=== PATIENT | female | born 1965 | race Caucasian/White ===

== ENCOUNTER → 2017-01-15 | Outpatient (CLI) | payer BC ==
[~2017-01-15] MED LIST: AMIT PO; CIPR-217 PO; lisinopril PO
[2017-01-15 10:25] LABS: Basophils # (auto) 0 uL; Basophils % (auto) 0.6 % (0.0-2.0); CONDITION Y; Eosinophils # (auto) 0.2 uL; Hematocrit 42.3 % (36.0-46.0); Hemoglobin 14.7 g/dL (12.2-16.2); Lymphocytes # (auto) 1.9 uL; Lymphocytes % (auto) 34.2 % (10.0-50.0); Mean Corpuscular Hemoglobin 32.4 pg (28.0-32.0); Mean Corpuscular Hgb Conc. 34.8 g/dL (32.0-36.0); Mean Corpuscular Volume 93.2 fL (80.0-100.0); Mean Platelet Volume 8.4 fL (7.4-10.4); Monocytes # (auto) 0.4 uL; Monocytes % (auto) 8.1 % (0.0-12.0); Neutrophils # (auto) 2.9 uL; Neutrophils % (auto) 53.1 % (37.0-80.0); Platelet Count (auto) 285 10^3/uL (140-450); White Blood Cell 5.5 10^3/uL (4.4-10.8)
[2017-01-15 11:12] LABS: BUN/Creatinine Ratio 28.8; Bilirubin, Total 0.6 mg/dL (0.2-1.0); Calcium 9.2 mg/dL (8.5-10.1); Potassium 3.5 mmol/L (3.5-5.1); Total Protein 7.5 g/dL (6.4-8.2)
== END | disposition home or self-care (01) ==
LOC: LAB 08:55
PROVIDERS: ATTEND Internal Medicine
DX: I10 Essential (primary) hypertension (principal); N20.0 Calculus of kidney
CPT/HCPCS: 80053; 80061; 84439; 84443; 85652

== ENCOUNTER 2018-03-03 15:25 | Inpatient (IN) | payer BC ==
[~2018-03-03] VITALS: Ht 180.3 cm; Wt 91.6 kg
[2018-03-03] MEDS ORDERED: SODIUM CHLORIDE 0.9% 1,000 ML IVB ONE (15:47)
[2018-03-03] MEDS ORDERED: ONDANSETRON HCL 4 MG/2 ML VIAL IV ONE ×2 (16:00→18:15)
[2018-03-03] MEDS ORDERED: KETOROLAC TROMETH 30 MG/ML 1ML VIAL IV ONE ×2 (16:00→23:00)
[2018-03-03 16:54] LABS: Basophils # (auto) 0.1 uL; Basophils % (auto) 0.9 % (0.0-2.0); Eosinophils # (auto) 0.2 uL; Eosinophils % (auto) 2.4 % (0.0-7.0); Hematocrit 43.7 % (36.0-46.0); Lymphocytes # (auto) 1.9 uL; Lymphocytes % (auto) 28.8 % (10.0-50.0); Mean Corpuscular Hemoglobin 32.6 pg (28.0-32.0); Mean Corpuscular Hgb Conc. 34.4 g/dL (32.0-36.0); Mean Corpuscular Volume 94.8 fL (80.0-100.0); Monocytes # (auto) 0.5 uL; Monocytes % (auto) 7.2 % (0.0-12.0); Neutrophils # (auto) 4.1 uL; Neutrophils % (auto) 60.7 % (37.0-80.0); Nucleated Red Blood Cells % 0.1 %; Platelet Count (auto) 287 10^3/uL (140-450); Red Blood Cells 4.61 10^6/uL (4.0-5.20); Red Cell Distribution Width 13.1 % (11.8-14.3); White Blood Cell 6.7 10^3/uL (4.4-10.8)
[2018-03-03 17:07] LABS: Albumin 4.1 g/dL (3.4-5.0); BUN/Creatinine Ratio 34.7; Calcium 9.1 mg/dL (8.5-10.1); Potassium 3.5 mmol/L (3.5-5.1)
[2018-03-03 17:10] LABS: Bilirubin, Total 0.5 mg/dL (0.2-1.0); Total Protein 7.5 g/dL (6.4-8.2)
[2018-03-03 18:11] LABS: Urine Bacteria NONE SEEN /hpf (None Seen); Urine Blood Negative /uL (Negative); Urine Mucus FEW (None Seen); Urine Specific Gravity 1.026 (1.001-1.035); Urine WBC 2 /hpf (0 - 5)
[2018-03-03] MEDS ORDERED: MORPHINE SULFATE 4 MG/ML SYR/VIAL IV ONE (18:15)
[2018-03-03] MEDS ORDERED: ONDANSETRON HCL 4 MG/2 ML VIAL IV PRN (18:30)
[2018-03-03] MEDS ORDERED: cefTRIAXone 1GM/10ml IVPUSH 10 ML IV ONE (18:30)
[2018-03-03] MEDS ORDERED: DOCUSATE SOD 100 MG CAP PO PRN (18:30)
[2018-03-03] MEDS ORDERED: TEMAZEPAM 15 MG CAP PO PRN (18:30)
[2018-03-03] MEDS ORDERED: MORPHINE SULF INJ 2 MG/ML SYRINGE 1ML IV PRN (18:30)
[2018-03-03] MEDS ORDERED: ACETAMINOPHEN 325 MG TAB PO PRN (18:30)
[2018-03-03] MEDS: SODIUM CHLORIDE 0.9% 1,000 ML IV SCH (18:45)
[2018-03-03] MEDS ORDERED: cloNIDine HCL 0.1 MG TAB PO PRN (20:00)
[2018-03-03 20:45] VITALS: BP 150/99
[2018-03-03] MEDS: FAMOTIDINE 20 MG TAB PO SCH (21:41)
[2018-03-03 22:00] VITALS: BP 150/99
[2018-03-03] MEDS ORDERED: HYDROcodone-ACET 7.5/325MG TAB PO ONE (23:00)
[2018-03-04] MEDS ORDERED: HCTZ25T PO (03:40)
[2018-03-04] MEDS: SODIUM CHLORIDE 0.9% 1,000 ML IV SCH ×2 (04:58→11:13)
[2018-03-04] MEDS: HYDROcodone-ACET 5/325MG TAB PO PRN ×2 (04:58→10:34)
[2018-03-04 05:40] VITALS: BP 134/90
[2018-03-04 05:58] LABS: Basophils # (auto) 0 uL; Basophils % (auto) 0.8 % (0.0-2.0); Eosinophils # (auto) 0.2 uL; Eosinophils % (auto) 3.1 % (0.0-7.0); Hematocrit 37.8 % (36.0-46.0); Hemoglobin 13.3 g/dL (12.2-16.2); Lymphocytes # (auto) 1.7 uL; Lymphocytes % (auto) 30.7 % (10.0-50.0); Mean Corpuscular Hemoglobin 33.3 pg (28.0-32.0); Mean Corpuscular Hgb Conc. 35.1 g/dL (32.0-36.0); Mean Corpuscular Volume 94.7 fL (80.0-100.0); Monocytes # (auto) 0.4 uL; Monocytes % (auto) 7.9 % (0.0-12.0); Neutrophils # (auto) 3.2 uL; Neutrophils % (auto) 57.5 % (37.0-80.0); Nucleated Red Blood Cells % 0.1 %; Platelet Count (auto) 226 10^3/uL (140-450); Red Blood Cells 3.99 10^6/uL (4.0-5.20); Red Cell Distribution Width 12.9 % (11.8-14.3); White Blood Cell 5.6 10^3/uL (4.4-10.8)
[2018-03-04 06:15] LABS: Albumin 3.3 g/dL (3.4-5.0); BUN/Creatinine Ratio 30.3; Bilirubin, Total 0.5 mg/dL (0.2-1.0); Potassium 3.3 mmol/L (3.5-5.1); Total Protein 6.1 g/dL (6.4-8.2)
[2018-03-04 06:20] LABS: INR 0.95 (0.9-1.15); Prothrombin Time 10.2 sec (9.27-12.13)
[2018-03-04] MEDS ORDERED: KETOROLAC TROMETH 30 MG/ML 1ML VIAL IV PRN (07:00)
[2018-03-04 09:00] VITALS: BP 141/97
[2018-03-04] MEDS ORDERED: cefTRIAXone 1GM/10ml IVPUSH 10 ML IV SCH (09:00)
[2018-03-04] MEDS ORDERED: LISINOPRIL 20 MG TAB PO SCH (10:00)
[2018-03-04] MEDS ORDERED: HCTZ 25 MG TAB PO SCH (10:00)
[2018-03-04] MEDS ORDERED: MULTIPLE VITAMIN TAB PO SCH (10:00)
[2018-03-04] MEDS: FAMOTIDINE 20 MG TAB PO SCH (10:26)
[2018-03-04] MEDS ORDERED: POTASSIUM CHL 20 Meq TABLET PO ONE (10:45)
[2018-03-04 11:59] VITALS: BP 141/97
== END 2018-03-04 13:35 | disposition home or self-care (01) | DRG 694 ==
LOC: ER 15:25 → EEVIPCON 15:26 → OVERFLOW 15:26 → CENTRAL 20:43
PROVIDERS: ADMIT Internal Medicine; ATTEND Internal Medicine
DX: N20.0 Calculus of kidney (principal); I10 Essential (primary) hypertension; Z96.89 Presence of other specified functional implants; Z82.49 Family history of ischemic heart disease and other diseases of the circulatory system; Z90.710 Acquired absence of both cervix and uterus; Z98.82 Breast implant status; Z88.1 Allergy status to other antibiotic agents; Z88.8 Allergy status to other drugs, medicaments and biological substances; Z79.899 Other long term (current) drug therapy; Z80.8 Family history of malignant neoplasm of other organs or systems
CPT/HCPCS: 36415; 74176; 80053; 81001; 85025; 85610; 87086; 96361; 96374; 96375; J0696; J1885; J2405

== ENCOUNTER 2018-03-10 06:04 | Day surgery (SDC) | payer BC ==
[2018-03-06 10:28] LABS: Basophils # (auto) 0 uL; Basophils % (auto) 0.9 % (0.0-2.0); Eosinophils # (auto) 0.2 uL; Eosinophils % (auto) 3.3 % (0.0-7.0); Hematocrit 42.7 % (36.0-46.0); Hemoglobin 14.5 g/dL (12.2-16.2); Lymphocytes % (auto) 37.4 % (10.0-50.0); Mean Corpuscular Hgb Conc. 34.1 g/dL (32.0-36.0); Monocytes # (auto) 0.5 uL; Monocytes % (auto) 8.8 % (0.0-12.0); Neutrophils # (auto) 2.6 uL; Neutrophils % (auto) 49.6 % (37.0-80.0); Platelet Count (auto) 260 10^3/uL (140-450); Red Blood Cells 4.54 10^6/uL (4.0-5.20); Red Cell Distribution Width 13.1 % (11.8-14.3); White Blood Cell 5.2 10^3/uL (4.4-10.8)
[2018-03-06 10:31] LABS: Urine Bacteria NONE SEEN /hpf (None Seen); Urine Blood Negative /uL (Negative); Urine Mucus FEW (None Seen); Urine Specific Gravity 1.023 (1.001-1.035); Urine WBC 1 /hpf (0 - 5)
[2018-03-06 10:46] LABS: INR 0.93 (0.9-1.15); Partial Thromboplastin Time 26.3 sec (23.78-33.04)
[2018-03-06 10:50] LABS: Albumin 3.9 g/dL (3.4-5.0); BUN/Creatinine Ratio 38.8; Bilirubin, Total 0.4 mg/dL (0.2-1.0); Potassium 3.7 mmol/L (3.5-5.1); Total Protein 7.5 g/dL (6.4-8.2)
[~2018-03-10] VITALS: Ht 180.3 cm; Wt 86.2 kg
[~2018-03-10 06:04] MED LIST changes: -AMIT PO; -CIPR-217 PO; +HCTZ25T PO
[2018-03-10] MEDS ORDERED: LIDOCAINE 1% (LOCAL ANESTH.) PF 5ml SDV ONE (07:09)
[2018-03-10] MEDS ORDERED: SUCCINYLCHOLINE CHLORIDE 20 MG/ML 10ML VIAL IV ONE (07:09)
[2018-03-10] MEDS ORDERED: ceFAZolin 1GM/50ML 50 ML IV ONE (07:11)
[2018-03-10] MEDS ORDERED: ETOMIDATE (2MG/ML) 20ML VIAL IV ONE (07:12)
[2018-03-10] MEDS ORDERED: MIDAZOLAM HCL 1MG/1ML-2 ML VIAL ONE (07:13)
[2018-03-10] MEDS ORDERED: LIDOCAINE 2% JELLY 11ml (GLYDO) ONE (07:18)
[2018-03-10] MEDS ORDERED: FAMOTIDINE (10MG/ML) 2ML VL IV ONE (07:21)
[2018-03-10] MEDS ORDERED: fentaNYL CITRATE 100 MCG/2 ML VL ONE (07:59)
[2018-03-10] MEDS ORDERED: DEXAMETHASONE SOD PHOS 10MG/1ML VIAL INJ ONE (08:03)
[2018-03-10] MEDS ORDERED: hydrALAZINE HCL 20 MG/ML VL ONE (08:04)
[2018-03-10] MEDS ORDERED: NALOXONE HCL 0.4 MG/ML VIAL IV PRN (08:15)
[2018-03-10] MEDS ORDERED: ePHEDrine SULFATE 50 MG/ML AMP ONE (08:15)
[2018-03-10] MEDS ORDERED: HYDROmorphone HCL 2 MG/ML VL IV PRN ×2 (08:15)
[2018-03-10] MEDS ORDERED: hydrALAZINE HCL 20 MG/ML VL IV PRN (08:15)
[2018-03-10] MEDS ORDERED: ONDANSETRON HCL 4 MG/2 ML VIAL IV ONE (08:15)
[2018-03-10] MEDS ORDERED: KETOROLAC TROMETH 30 MG/ML 1ML VIAL ONE (08:22)
[2018-03-10 09:54] VITALS: BP 147/94
== END 2018-03-10 09:54 | disposition home or self-care (01) ==
LOC: SUR 06:04
PROVIDERS: ATTEND Urology
DX: N20.0 Calculus of kidney (principal); I10 Essential (primary) hypertension; Z79.899 Other long term (current) drug therapy; Z90.710 Acquired absence of both cervix and uterus; Z88.8 Allergy status to other drugs, medicaments and biological substances; Z88.1 Allergy status to other antibiotic agents; Z98.82 Breast implant status; Z80.8 Family history of malignant neoplasm of other organs or systems; Z98.890 Other specified postprocedural states; Z79.01 Long term (current) use of anticoagulants
CPT/HCPCS: 36415; 50590; 80053; 81001; 85025; 85610; 85730; J0330; J0360; J0690; J1100; J1170; J1885; J2250; J2405; J3010; J3490

== ENCOUNTER 2018-09-19 08:00 | Day surgery (SDC) | payer BC ==
[2018-09-16 10:52] LABS: Basophils # (auto) 0 uL; Basophils % (auto) 0.6 % (0.0-2.0); Eosinophils # (auto) 0.2 uL; Eosinophils % (auto) 3.3 % (0.0-7.0); Hemoglobin 14.4 g/dL (12.2-16.2); Lymphocytes % (auto) 32.3 % (10.0-50.0); Mean Corpuscular Hgb Conc. 33.5 g/dL (32.0-36.0); Mean Corpuscular Volume 95.7 fL (80.0-100.0); Monocytes # (auto) 0.4 uL; Monocytes % (auto) 6.4 % (0.0-12.0); Neutrophils # (auto) 3.6 uL; Neutrophils % (auto) 57.4 % (37.0-80.0); Nucleated Red Blood Cells % 0.1 %; Platelet Count (auto) 258 10^3/uL (140-450); Red Cell Distribution Width 13.3 % (11.8-14.3); White Blood Cell 6.2 10^3/uL (4.4-10.8)
[2018-09-16 11:06] LABS: INR 0.93 (0.9-1.15); Partial Thromboplastin Time 25.6 sec (23.78-33.04)
[~2018-09-19] VITALS: Ht 180.3 cm; Wt 93.0 kg
[~2018-09-19 08:00] MED LIST changes: +LISI40TA PO; -lisinopril PO
[2018-09-19] MEDS ORDERED: SODIUM CHLORIDE LOCK 10 ML ONE (08:34)
[2018-09-19] MEDS ORDERED: diphenhdrAMINE HCL 50 MG/1 ML VL ONE ×2 (08:34→11:36)
[2018-09-19] MEDS: fentaNYL CITRATE 100 MCG/2 ML VL ONE ×6 (09:14→09:34)
[2018-09-19] MEDS: MIDAZOLAM HCL 5 MG/ML-1ML VIAL ONE ×6 (09:14→09:34)
[2018-09-19] MEDS ORDERED: fentaNYL CITRATE 100 MCG/2 ML VL ONE (09:34)
[2018-09-19] MEDS ORDERED: GLYCOPYRROLATE 0.2 MG/ML 1ML VIAL ONE (11:36)
[2018-09-19] MEDS ORDERED: MIDAZOLAM HCL 1MG/1ML-2 ML VIAL ONE ×2 (11:36→12:20)
[2018-09-19] MEDS ORDERED: LIDOCAINE 2% (LOCAL ANESTH.) PF 5ml SDV ONE (11:37)
[2018-09-19] MEDS ORDERED: PROPOFOL 10 MG/ML 20 ML IV ONE ×2 (11:37→12:34)
[2018-09-19 12:08] LABS: Calcium 8.9 mg/dL (8.5-10.1); Potassium 3.4 mmol/L (3.5-5.1)
[2018-09-19 12:15] LABS: BUN/Creatinine Ratio 20.4; Bilirubin, Total 0.8 mg/dL (0.2-1.0); Total Protein 7.1 g/dL (6.4-8.2)
[2018-09-19] MEDS ORDERED: ESMOLOL HCL 10 ML IV ONE (12:25)
[2018-09-19] MEDS ORDERED: hydrALAZINE HCL 20 MG/ML VL ONE (12:29)
[2018-09-19] MEDS ORDERED: ePHEDrine SULFATE 50 MG/ML AMP ONE (12:42)
[2018-09-19] MEDS ORDERED: STERILE WATER 10 ML ONE (12:42)
[2018-09-19 13:31] VITALS: BP 140/71
== END 2018-09-19 13:45 | disposition home or self-care (01) ==
LOC: GI 08:00
PROVIDERS: ATTEND Internal Medicine Gastroenterology
DX: Z12.11 Encounter for screening for malignant neoplasm of colon (principal); D12.3 Benign neoplasm of transverse colon; D12.2 Benign neoplasm of ascending colon; K64.8 Other hemorrhoids; Z88.1 Allergy status to other antibiotic agents; Z88.8 Allergy status to other drugs, medicaments and biological substances; Z90.710 Acquired absence of both cervix and uterus; Z98.890 Other specified postprocedural states
CPT/HCPCS: 36415; 45380; 80053; 85025; 85610; 85730; 88305; J0360; J1200; J2001; J2250; J2704; J3010; J7030

== ENCOUNTER → 2019-01-13 | Outpatient (CLI) | payer BC ==
[2019-01-13 09:29] LABS: Basophils # (auto) 0.1 uL; Eosinophils # (auto) 0.2 uL; Hematocrit 46.1 % (36.0-46.0); Hemoglobin 15.8 g/dL (12.2-16.2); Lymphocytes # (auto) 2.5 uL; Lymphocytes % (auto) 35.4 % (10.0-50.0); Mean Corpuscular Hemoglobin 32.3 pg (28.0-32.0); Mean Corpuscular Hgb Conc. 34.3 g/dL (32.0-36.0); Mean Corpuscular Volume 94.2 fL (80.0-100.0); Monocytes # (auto) 0.5 uL; Monocytes % (auto) 6.9 % (0.0-12.0); Neutrophils # (auto) 3.8 uL; Neutrophils % (auto) 53.7 % (37.0-80.0); Nucleated Red Blood Cells % 0.1 %; Platelet Count (auto) 252 10^3/uL (140-450); Red Blood Cells 4.89 10^6/uL (4.0-5.20); Red Cell Distribution Width 13.1 % (11.8-14.3); White Blood Cell 7.1 10^3/uL (4.4-10.8)
[2019-01-13 09:56] LABS: Albumin 3.9 g/dL (3.4-5.0); BUN/Creatinine Ratio 32.9; Calcium 9.4 mg/dL (8.5-10.1); Potassium 3.5 mmol/L (3.5-5.1)
[2019-01-13 10:01] LABS: Bilirubin, Total 0.4 mg/dL (0.2-1.0); Total Protein 7.8 g/dL (6.4-8.2)
== END | disposition home or self-care (01) ==
LOC: LAB 09:06
PROVIDERS: ATTEND Physician Assistant
DX: N20.0 Calculus of kidney (principal); G43.909 Migraine, unspecified, not intractable, without status migrainosus; I10 Essential (primary) hypertension; R53.83 Other fatigue
CPT/HCPCS: 36415; 80053; 80061; 82306; 83036; 84443; 85025

== ENCOUNTER 2020-04-07 11:24 | Inpatient (IN) | payer BC ==
[~2020-04-07] VITALS: Ht 180.3 cm; Wt 95.5 kg
[~2020-04-07 11:24] MED LIST changes: -LISI40TA PO; +LISI40TA11 PO
[2020-04-07] MEDS ORDERED: ONDANSETRON HCL 4 MG/2 ML VIAL IV ONE (11:45)
[2020-04-07] MEDS ORDERED: ACETAMINOPHEN 325 MG TAB PO ONE (11:45)
[2020-04-07] MEDS ORDERED: SODIUM CHLORIDE 0.9% 1,000 ML IV ONE (11:45)
[2020-04-07] MEDS ORDERED: ONDANSETRON ODT 4 MG TAB PO ONE (12:15)
[2020-04-07 12:29] LABS: Basophils # (auto) 0 10 ^3/uL (0-0.2); Basophils % (auto) 0.2 % (0.0-2.0); Eosinophils # (auto) 0.1 10 ^3/uL (0-0.8); Eosinophils % (auto) 0.8 % (0.0-7.0); Hematocrit 44.7 % (36.0-46.0); Hemoglobin 15.2 g/dL (12.2-16.2); Lymphocytes # (auto) 0.6 10 ^3/uL (0.4-5.4); Lymphocytes % (auto) 4.9 % (10.0-50.0); Mean Corpuscular Volume 93.9 fL (80.0-100.0); Monocytes # (auto) 0.6 10 ^3/uL (0-1.3); Monocytes % (auto) 4.3 % (0.0-12.0); Neutrophils # (auto) 11.8 10 ^3/uL (1.6-8.6); Neutrophils % (auto) 89.8 % (37.0-80.0); Platelet Count (auto) 234 10^3/uL (140-450); Red Blood Cells 4.76 10^6/uL (4.0-5.20); Red Cell Distribution Width 13.2 % (11.8-14.3); White Blood Cell 13.1 10^3/uL (4.4-10.8)
[2020-04-07 12:43] LABS: Albumin 4.1 g/dL (3.4-5.0); Potassium 3.5 mmol/L (3.5-5.1)
[2020-04-07 12:55] LABS: BUN/Creatinine Ratio 44.6; Bilirubin, Total 0.9 mg/dL (0.2-1.0); CRP High Sensitivity 1.17 mg/dL (< 0.3); Total Protein 7.4 g/dL (6.4-8.2)
[2020-04-07] MEDS ORDERED: ONDANSETRON HCL 4 MG/2 ML VIAL IV PRN (13:30)
[2020-04-07] MEDS ORDERED: cefTRIAXone 1GM/50ML D5W 50 ML IV ONE (13:30)
[2020-04-07] MEDS ORDERED: MORPHINE SULF INJ 2 MG/ML SYRINGE 1ML IV PRN ×2 (13:30)
[2020-04-07] MEDS ORDERED: ALUM & MAG HYDROX-SIMETH LIQ(MAALOX) 30 ML PO PRN (13:30)
[2020-04-07] MEDS ORDERED: HYDROmorphone HCL 2 MG/ML VL IV PRN (13:30)
[2020-04-07] MEDS ORDERED: NITROGLYCERIN 0.4 MG SL TAB SL PRN (13:30)
[2020-04-07] MEDS ORDERED: METOPROLOL TARTRATE 1MG/1ML-5ML VIAL IV PRN (13:30)
[2020-04-07] MEDS ORDERED: ACETAMINOPHEN 500 MG TAB PO PRN (13:30)
[2020-04-07] MEDS ORDERED: TEMAZEPAM 15 MG CAP PO PRN (13:30)
[2020-04-07] MEDS ORDERED: HYDROcodone-ACET 5/325MG TAB PO PRN (13:30)
[2020-04-07] MEDS ORDERED: ALBUTEROL SULF HFA 90MCG INH 200DOSE IN SCH (14:00)
[2020-04-07] MEDS ORDERED: AZITHROMYCIN 500MG/ 250ML 250 ML IV ONE (14:30)
--- NOTE | 2020-04-07 14:30 | NUR ---
MIDLINE SPOKE WITH PATIENT REGARDING MIDLINE ORDER. PATIENT STATES SHE WOULD LIKE TO WAIT ON HAVING A MIDLINE SINCE SHE HAS A WORKING LEFT AC 20 G PIV AT THIS TIME.
[2020-04-07] MEDS ORDERED: FAMOTIDINE 20 MG TAB PO ONE (14:45)
[2020-04-07] MEDS: SODIUM CHLOR 0.9% PF (SALINE LOCK) 10ML VIAL/SYR IV SCH ×2 (15:13→22:00)
--- NOTE | 2020-04-07 15:30 | NUR ---
Telemetry admit from ER MIGDALIA WALLER admitted to Telemetry unit after SBAR received. Patient oriented to Jess Eason, primary RN, unit, room, bed, and unit policies regarding patient care and visiting hours. Patient now on continuous telemetry monitoring, tele box # 9 and telemetry reading on arrival to unit is . Patient placed on bedside oxygen, weighed by bedscale and encouraged to call if they need something. All questions and concerns addressed, patient verbalized understanding. Note:
[2020-04-07] MEDS ORDERED: diphenhdrAMINE HCL 50 MG/1 ML VL ONE (15:56)
[2020-04-07] MEDS ORDERED: diphenhdrAMINE HCL 50 MG/1 ML VL IV ONE (16:15)
[2020-04-07 16:41] LABS: Urine Bacteria NONE SEEN /hpf (None Seen); Urine Blood TRACE /uL (Negative); Urine Mucus FEW (None Seen); Urine Specific Gravity 1.023 (1.001-1.035); Urine WBC 3 /hpf (0 - 5)
[2020-04-07 17:00] VITALS: BP 140/93
[2020-04-07] MEDS ORDERED: ERGO1CAP23 PO (17:19)
[2020-04-07] MEDS: ACETAMINOPHEN 325 MG TAB PO PRN ×2 (17:28→20:49)
[2020-04-07 18:01] VITALS: BP 140/93
--- NOTE | 2020-04-07 19:30 | NUR ---
Opening Shift Note Assumed care of patient, awake and alert. No S/S of distress/SOB or pain. Instructed on POC and to call for assist PRN, will continue to monitor for changes Q1hr and PRN.
--- NOTE | 2020-04-07 20:07 | NUR ---
Received new orders to repeat IN HOUSE COVID Swab from Dr. Terry. Will put in orders and send swab accordingly.
--- NOTE | 2020-04-07 21:31 | NUR ---
Respiratory note: RESPIRATORY ASSESSMENT, PT RESTING COMFORTABLY AT THIS TIME, NO SIGNS OR SYMPTOMS OF RESPIRATORY DISTRESS. HR 101, SPO2 93% ON ROOM AIR, RR 18, BS DIMINISHED. PT MADE AWARE TO HAVE RT PAGED IF NEEDED, WILL CONTINUE TO MONITOR .
[2020-04-07 22:00] VITALS: BP 145/90
[2020-04-07] MEDS ORDERED: BUDESONIDE (INHALATION) 180 MCG IH IN SCH (22:00)
[2020-04-08 05:00] VITALS: BP 141/94
[2020-04-08] MEDS: SODIUM CHLOR 0.9% PF (SALINE LOCK) 10ML VIAL/SYR IV SCH (05:21)
[2020-04-08 09:00] VITALS: BP 141/90
[2020-04-08] MEDS ORDERED: LISINOPRIL 20 MG TAB PO ONE (09:00)
[2020-04-08] MEDS ORDERED: cefTRIAXone 1GM/50ML D5W 50 ML IV SCH (09:00)
[2020-04-08 09:42] LABS: Basophils # (auto) 0 10 ^3/uL (0-0.2); Basophils % (auto) 0.4 % (0.0-2.0); Eosinophils # (auto) 0.1 10 ^3/uL (0-0.8); Eosinophils % (auto) 2.1 % (0.0-7.0); Hematocrit 41.5 % (36.0-46.0); Hemoglobin 14.1 g/dL (12.2-16.2); Lymphocytes # (auto) 0.9 10 ^3/uL (0.4-5.4); Lymphocytes % (auto) 19.8 % (10.0-50.0); Mean Corpuscular Hemoglobin 32.1 pg (28.0-32.0); Mean Corpuscular Hgb Conc. 33.9 g/dL (32.0-36.0); Mean Corpuscular Volume 94.8 fL (80.0-100.0); Monocytes # (auto) 0.4 10 ^3/uL (0-1.3); Monocytes % (auto) 9.1 % (0.0-12.0); Neutrophils # (auto) 3.2 10 ^3/uL (1.6-8.6); Neutrophils % (auto) 68.6 % (37.0-80.0); Platelet Count (auto) 194 10^3/uL (140-450); Red Blood Cells 4.38 10^6/uL (4.0-5.20); Red Cell Distribution Width 13.4 % (11.8-14.3); White Blood Cell 4.7 10^3/uL (4.4-10.8)
[2020-04-08] MEDS ORDERED: ASCORBIC ACID 1,000 MG TAB PO SCH (10:00)
[2020-04-08] MEDS ORDERED: FAMOTIDINE 20 MG TAB PO SCH (10:00)
[2020-04-08] MEDS ORDERED: ENOXAPARIN SOD 40 MG/0.4 ML SYRINGE SC SCH (10:00)
[2020-04-08] MEDS ORDERED: CHOLECALCIFEROL (VITD3) 2,000 UNIT CAP PO SCH (10:00)
[2020-04-08] MEDS ORDERED: ZINC SULFATE 220mg CAP or TAB PO SCH (10:00)
[2020-04-08 10:03] LABS: Potassium 3.4 mmol/L (3.5-5.1)
[2020-04-08 10:13] LABS: Albumin 3.4 g/dL (3.4-5.0); BUN/Creatinine Ratio 30.2; Bilirubin, Total 0.6 mg/dL (0.2-1.0); Calcium 8.8 mg/dL (8.5-10.1); Total Protein 6.6 g/dL (6.4-8.2)
[2020-04-08 12:49] VITALS: BP 143/100
[2020-04-08] MEDS ORDERED: HCTZ 25 MG TAB PO ONE (13:15)
[2020-04-08] MEDS ORDERED: hydrALAZINE HCL 25 MG TAB PO ONE (13:15)
--- NOTE | 2020-04-08 14:32 | NUR ---
Discharge instructions given as ordered. Encourage to follow up with PMD as instructed. All questions and concerns addressed. Patient verbalized understanding. Medication reconciliation form completed and copy given to patient. Home medications held in Pharmacy returned to patient, and needed vaccines given. IV removed with catheter intact, pressure dressing applied,. Telemetry unit returned to ICU. Patient taken to vehicle via wheelchair with all personal belongings, accompanied by staff and family member. No distress noted at time of departure.
== END 2020-04-08 14:10 | disposition home or self-care (01) | DRG 872 ==
LOC: EEVIPCON 11:24 → ER 11:24 → TELE 11:25 → OBSVTOIN 11:25 → TELE-EAST 16:53
PROVIDERS: ADMIT Internal Medicine; ATTEND Internal Medicine
DX: A41.9 Sepsis, unspecified organism (principal); N39.0 Urinary tract infection, site not specified; E86.0 Dehydration; I10 Essential (primary) hypertension; Z20.828 Contact with and (suspected) exposure to other viral communicable diseases; Z85.118 Personal history of other malignant neoplasm of bronchus and lung; Z87.442 Personal history of urinary calculi; Z90.710 Acquired absence of both cervix and uterus; Z88.1 Allergy status to other antibiotic agents; Z88.8 Allergy status to other drugs, medicaments and biological substances
CPT/HCPCS: 36415; 71045; 71250; 74176; 80053; 81001; 82306; 82728; 83036; 83605; 83615; 83735; 84439; 84443; 85025; 85379; 85652; 86141; 86850; 86900; 86901; 87040; 87086; 87426; 87804; 93005; 96365; 96368; G0378; J0696; J2405; Q0162

== ENCOUNTER → 2020-05-04 | Outpatient (CLI) | payer OTHER ==
[~2020-05-04] MED LIST changes: +ERGO1CAP23 PO
== END | disposition home or self-care (01) ==
LOC: LAB 17:58
PROVIDERS: ATTEND Physician Assistant
DX: U07.1 COVID-19 (principal)
CPT/HCPCS: C9803; U0003